=== PATIENT | male | born 1990 | race Two or more races ===

== ENCOUNTER 2019-09-09 00:51 | Emergency (ER) | payer OTHER ==
[~2019-09-09] VITALS: Ht 172.7 cm; Wt 56.8 kg
[2019-09-09] MEDS ORDERED: IV NORMAL SALINE 1000ML BAG 1,000 ML IV SCH (01:32)
--- NOTE | 2019-09-09 01:33 | PHYS DOC ---
Past Medical History Past Medical History: No Pertinent History Past Surgical History: No Surgical History Smoking Status: Never Smoker Alcohol Use: None General Adult EDM: Chief Complaint: ABDOMINAL PAIN HPI: HPI: Patient is a 29 year old male who presents with left upper quadrant pain that began an hour prior to arrival. Patient had some chicken tonight which may have caused it. Patient has pain with deep breath. No nausea vomiting. Pain is nonradiating described as a pain pain is moderate in nature worse with palpation and deep breath Review of Systems: Review of Systems: Constitutional: Denies fever or chills. [] Eyes: Denies change in visual acuity. [] HENT: Denies nasal congestion or sore throat. [] Respiratory: Denies cough or shortness of breath. [] Cardiovascular: Denies chest pain or edema. [] GI: Complains of abdominal pain but no nausea vomiting : Denies dysuria. [] Musculoskeletal: Denies back pain or joint pain. [] Integument: Denies rash. [] Neurologic: Denies headache, focal weakness or sensory changes. [] Endocrine: Denies polyuria or polydipsia. [] Lymphatic: Denies swollen glands. [] Psychiatric: Denies depression or anxiety. [] Heart Score: Risk Factors: Risk Factors: DM, Current or recent (<one month) smoker, HTN, HLP, family history of CAD, obesity. Risk Scores: Score 0 - 3: 2.5% MACE over next 6 weeks - Discharge Home Score 4 - 6: 20.3% MACE over next 6 weeks - Admit for Clinical Observation Score 7 - 10: 72.7% MACE over next 6 weeks - Early Invasive Strategies Physical Exam: PE: Constitutional: Well developed, well nourished, no acute distress, non-toxic appearance. [] HENT: Normocephalic, atraumatic, bilateral external ears normal, no trismus Eyes: PERRLA, EOMI, conjunctiva normal, no discharge. [] Neck: Normal range of motion, no tenderness, supple, no stridor. [] Cardiovascular:Heart rate regular rhythm, Lungs & Thorax: No respiratory distress Abdomen: soft, tenderness to palpate left upper quadrant, no masses, no pulsatile masses. [] No guarding or rebound Skin: Warm, dry, no erythema, no rash. [] Back: No tenderness, no CVA tenderness. [] Extremities: No tenderness, no cyanosis, no clubbing, ROM intact, no edema. [] Neurologic: Alert and oriented X 3, normal motor function, normal sensory function, no focal deficits noted. [] Psychologic: Affect normal, judgement normal, mood normal. [] Current Patient Data: Labs: Laboratory Tests Test 09/09/19 01:03 09/09/19 01:55 Urine Collection Type Unknown Urine Color Yellow Urine Clarity Clear Urine pH 6.0 Urine Specific [place] >=1.030 Urine Protein Negative mg/dL Urine Glucose (UA) Negative mg/dL Urine Ketones (Stick) Negative mg/dL Urine Blood Negative Urine Nitrite Negative Urine Bilirubin Negative Urine Urobilinogen Dipstick 1.0 mg/dL Urine Leukocyte Esterase Negative Urine RBC 0 /HPF Urine WBC Rare /HPF Urine Squamous Epithelial Cells Occ /LPF Urine Amorphous Sediment Present /HPF Urine Bacteria 0 /HPF Urine Mucus Mod /LPF White Blood Count 12.5 x10^3/uL Red Blood Count 4.81 x10^6/uL Hemoglobin 14.5 g/dL Hematocrit 42.5 % Mean Corpuscular Volume 89 fL Mean Corpuscular Hemoglobin 30 pg Mean Corpuscular Hemoglobin Concent 34 g/dL Red Cell Distribution Width 12.7 % Platelet Count 186 x10^3/uL Neutrophils (%) (Auto) 85 % Lymphocytes (%) (Auto) 7 % Monocytes (%) (Auto) 7 % Eosinophils (%) (Auto) 1 % Basophils (%) (Auto) 0 % Neutrophils # (Auto) 10.6 x10^3/uL Lymphocytes # (Auto) 0.9 x10^3/uL Monocytes # (Auto) 0.9 x10^3/uL Eosinophils # (Auto) 0.1 x10^3/uL Basophils # (Auto) 0.0 x10^3/uL Sodium Level 141 mmol/L Potassium Level 3.1 mmol/L Chloride Level 104 mmol/L Carbon Dioxide Level 29 mmol/L Anion Gap 8 Blood Urea Nitrogen 20 mg/dL Creatinine 1.1 mg/dL Estimated GFR (Cockcroft-Gault) 79.1 BUN/Creatinine Ratio 18 Glucose Level 115 mg/dL Calcium Level 8.5 mg/dL Total Bilirubin 1.5 mg/dL Aspartate Amino Transf (AST/SGOT) 25 U/L Alanine Aminotransferase (ALT/SGPT) 28 U/L Alkaline Phosphatase 79 U/L Total Protein 6.9 g/dL Albumin 3.7 g/dL Albumin/Globulin Ratio 1.2 Lipase 94 U/L Current Medications Medications (Trade) Dose Ordered Sig/Shagufta Route PRN Reason Start Time Stop Time Status Last Admin Dose Admin Sodium Chloride 1,000 ml @ 1,000 mls/hr Q1H IV 09/09/19 01:32 09/09/19 02:31 DC 09/09/19 02:19 Multi-Ingredient Mouthwash/Gargle (Gi Cocktail) 20 ml PRN QID PRN PO CHEST PAIN 09/09/19 01:45 09/09/19 02:18 Potassium Chloride (Klor-Con) 20 meq 1X ONCE PO 09/09/19 04:00 09/09/19 04:01 09/09/19 03:51 Laboratory Tests Test 09/09/19 01:03 09/09/19 01:55 Urine Collection Type Unknown Urine Color Yellow Urine Clarity Clear Urine pH 6.0 Urine Specific [place] >=1.030 Urine Protein Negative mg/dL Urine Glucose (UA) Negative mg/dL Urine Ketones (Stick) Negative mg/dL Urine Blood Negative Urine Nitrite Negative Urine Bilirubin Negative Urine Urobilinogen Dipstick 1.0 mg/dL Urine Leukocyte Esterase Negative Urine RBC 0 /HPF Urine WBC Rare /HPF Urine Squamous Epithelial Cells Occ /LPF Urine Amorphous Sediment Present /HPF Urine Bacteria 0 /HPF Urine Mucus Mod /LPF White Blood Count 12.5 x10^3/uL Red Blood Count 4.81 x10^6/uL Hemoglobin 14.5 g/dL Hematocrit 42.5 % Mean Corpuscular Volume 89 fL Mean Corpuscular Hemoglobin 30 pg Mean Corpuscular Hemoglobin Concent 34 g/dL Red Cell Distribution Width 12.7 % Platelet Count 186 x10^3/uL Neutrophils (%) (Auto) 85 % Lymphocytes (%) (Auto) 7 % Monocytes (%) (Auto) 7 % Eosinophils (%) (Auto) 1 % Basophils (%) (Auto) 0 % Neutrophils # (Auto) 10.6 x10^3/uL Lymphocytes # (Auto) 0.9 x10^3/uL Monocytes # (Auto) 0.9 x10^3/uL Eosinophils # (Auto) 0.1 x10^3/uL Basophils # (Auto) 0.0 x10^3/uL Sodium Level 141 mmol/L Potassium Level 3.1 mmol/L Chloride Level 104 mmol/L Carbon Dioxide Level 29 mmol/L Anion Gap 8 Blood Urea Nitrogen 20 mg/dL Creatinine 1.1 mg/dL Estimated GFR (Cockcroft-Gault) 79.1 BUN/Creatinine Ratio 18 Glucose Level 115 mg/dL Calcium Level 8.5 mg/dL Total Bilirubin 1.5 mg/dL Aspartate Amino Transf (AST/SGOT) 25 U/L Alanine Aminotransferase (ALT/SGPT) 28 U/L Alkaline Phosphatase 79 U/L Total Protein 6.9 g/dL Albumin 3.7 g/dL Albumin/Globulin Ratio 1.2 Lipase 94 U/L Current Medications Medications (Trade) Dose Ordered Sig/Shagufta Route PRN Reason Start Time Stop Time Status Last Admin Dose Admin Sodium Chloride 1,000 ml @ 1,000 mls/hr Q1H IV 09/09/19 01:32 09/09/19 02:31 DC 09/09/19 02:19 Multi-Ingredient Mouthwash/Gargle (Gi Cocktail) 20 ml PRN QID PRN PO CHEST PAIN 09/09/19 01:45 09/09/19 02:18 Laboratory Tests Test 09/09/19 01:03 09/09/19 01:55 Urine Collection Type Unknown Urine Color Yellow Urine Clarity Clear Urine pH 6.0 Urine Specific [place] >=1.030 Urine Protein Negative mg/dL Urine Glucose (UA) Negative mg/dL Urine Ketones (Stick) Negative mg/dL Urine Blood Negative Urine Nitrite Negative Urine Bilirubin Negative Urine Urobilinogen Dipstick 1.0 mg/dL Urine Leukocyte Esterase Negative Urine RBC 0 /HPF Urine WBC Rare /HPF Urine Squamous Epithelial Cells Occ /LPF Urine Amorphous Sediment Present /HPF Urine Bacteria 0 /HPF Urine Mucus Mod /LPF White Blood Count 12.5 x10^3/uL Red Blood Count 4.81 x10^6/uL Hemoglobin 14.5 g/dL Hematocrit 42.5 % Mean Corpuscular Volume 89 fL Mean Corpuscular Hemoglobin 30 pg Mean Corpuscular Hemoglobin Concent 34 g/dL Red Cell Distribution Width 12.7 % Platelet Count 186 x10^3/uL Neutrophils (%) (Auto) 85 % Lymphocytes (%) (Auto) 7 % Monocytes (%) (Auto) 7 % Eosinophils (%) (Auto) 1 % Basophils (%) (Auto) 0 % Neutrophils # (Auto) 10.6 x10^3/uL Lymphocytes # (Auto) 0.9 x10^3/uL Monocytes # (Auto) 0.9 x10^3/uL Eosinophils # (Auto) 0.1 x10^3/uL Basophils # (Auto) 0.0 x10^3/uL Sodium Level 141 mmol/L Potassium Level 3.1 mmol/L Chloride Level 104 mmol/L Carbon Dioxide Level 29 mmol/L Anion Gap 8 Blood Urea Nitrogen 20 mg/dL Creatinine 1.1 mg/dL Estimated GFR (Cockcroft-Gault) 79.1 BUN/Creatinine Ratio 18 Glucose Level 115 mg/dL Calcium Level 8.5 mg/dL Total Bilirubin 1.5 mg/dL Aspartate Amino Transf (AST/SGOT) 25 U/L Alanine Aminotransferase (ALT/SGPT) 28 U/L Alkaline Phosphatase 79 U/L Total Protein 6.9 g/dL Albumin 3.7 g/dL Albumin/Globulin Ratio 1.2 Lipase 94 U/L Current Medications Medications (Trade) Dose Ordered Sig/Shagufta Route PRN Reason Start Time Stop Time Status Last Admin Dose Admin Sodium Chloride 1,000 ml @ 1,000 mls/hr Q1H IV 09/09/19 01:32 09/09/19 02:31 DC 09/09/19 02:19 Multi-Ingredient Mouthwash/Gargle (Gi Cocktail) 20 ml PRN QID PRN PO CHEST PAIN 09/09/19 01:45 09/09/19 02:18 Vital Signs: Vital Signs Date Time Temp Pulse Resp B/P (MAP) Pulse Ox O2 Delivery O2 Flow Rate FiO2 09/09/19 03:00 65 106/55 (72) 98 Room Air 09/09/19 02:30 79 113/56 (75) 98 Room Air 09/09/19 02:00 60 104/56 (72) 97 Room Air 09/09/19 01:30 60 110/56 (74) 98 Room Air 09/09/19 01:21 98.1 53 19 115/55 (75) 98 Room Air 98.1 Vital Signs Date Time Temp Pulse Resp B/P (MAP) Pulse Ox O2 Delivery O2 Flow Rate FiO2 09/09/19 01:21 98.1 53 19 115/55 (75) 98 Room Air 98.1 EKG: EKG: [] Radiology/Procedures: Radiology/Procedures: [][facility] [address] [place] [address] IMAGING REPORT Signed PATIENT: GUERRERO LAWRENCE ACCOUNT: [id number] : 1990 LOCATION: ER AGE: 29 SEX: M EXAM STATUS: REG ER ORD. PHYSICIAN: AGNIESZKA DANIEL MD REASON: LUQ PAIN PROCEDURE: ACUTE ABDOMEN SERIES PROCEDURE: ACUTE ABDOMEN SERIES STUDY DATE: 09/09/2019 CLINICAL INDICATION / HISTORY: Reason: LUQ PAIN / Spl. Instructions: / History: . TECHNIQUE: Upright PA chest, supine and upright films of the abdomen were obtained. COMPARISON: None FINDINGS: AP view the chest reveals the lungs to be clear. Cardiac and mediastinal silhouette are unremarkable. No free air is identified below the diaphragms. Supine and upright views of the abdomen reveal no dilated loops of bowel or air-fluid levels. No organomegaly is present. No destructive osseous lesions. IMPRESSION: No radiographic evidence for bowel obstruction. Electronically signed by: Miriam Dozier MD (09/09/2019 2:30 AM) [facility] [place] DICTATED and SIGNED BY: MIRIAM DOZIER MD DATE: 09/09/190 Course & Med Decision Making: Course & Med Decision Making Pertinent Labs and Imaging studies reviewed. (See chart for details) [] Reassessment at 328 patient feels better pain is down to a 2. Abdomen is soft and nontender. Work-up is reassuring. Most likely patient has gastritis we will send him home on a PPI and follow-up as needed Deng Disclaimer: Deng Disclaimer: This electronic medical record was generated, in whole or in part, using a voice recognition dictation system. Departure Departure Impression: Primary Impression: Left upper quadrant abdominal pain Additional Impression: Gastritis Disposition: 01 HOME, SELF-CARE Condition: STABLE Referrals: AGNIESZKA MCCORD MD 2-3 days Patient Instructions: Gastritis, Adult Additional Instructions: EMERGENCY DEPARTMENT GENERAL DISCHARGE INSTRUCTIONS Thank you for coming to [facility] Emergency Department (ED) today and trusting us with you care. We trust that you had a positivie experience in our Emergency Department. If you wish to speak to the department management, you may call the sirector at [phone]. YOUR FOLLOW UP INSTRUCTIONS ARE FOLLOWS: 1. Do you have a private Doctor? If you do not have a private doctir, please ask for a resource list of physicians or clinics that may be able to assist you with follow up care. 2. The Emergency Physicain has interpreted your x-rays. The X-Ray specialist will also review them. If there is a change in the findingd, you will be notified in 48 hours when at all possible. 3. A lab test or culture has been done, your results will be reviewed and you will be notified if you need a change in treatment. ADDITIONAL INSTRUCTIONS AND INFORMATION: 1. Your care today has been supervised by a physician who is specially trained in emergency care. Many problems require more than one evaluation for a complete diagnosis and treatment. We recommend that you schedule your follow up appointment as recommended to ensure complete treatment of you illness or injury. If you are unable to obtain follow up care and continue to have a problem, or if your consition worsens, we recommend that you return to the ED. 2. We are not able to safelymdetermine your condition over the phone nor are we able to give sound medical advice over the phone. For these safety reasons, if you call for medical advice we will ask you to come to the ED for further evaluation. 3. If you have any questions regarding these discharge instructions please call the ED at [phone]. SAFETY INFORMATION: In the interest of safety, wellness, and injury prevention; we encourage you to wear your sealbelt, if you smoke; quite smoking, and we encourage family to use a protective helmet for bicycling and other sporting events that present an increased risk for head injusry. IF YOUR SYMPTOMS WORSEN OR NEW SYMPTOMS DEVELOP, OR YOU HAVE CONCERNS ABOUT YOUR CONDITION; OR IF YOUR CONDITION WORSENS WHILE YOU ARE WAITING FOR YOUR FOLLOW UP APPOINTMENT; EITHER CONTACT YOUR PRIMARY CARE DOCTOR, THE PHYSICIAN WHOSE NAME AND NUMBER YOU WERE GIVEN, OR RETURN TO THE ED IMMEDIATELY. Scripts Esomeprazole Magnesium (NEXIUM CAPSULE) 40 Mg Capsule.dr 1 CAP PO DAILY, #30 CAP 5 Refills Prov: AGNIESZKA DANIEL MD 09/09/19 Justicifation of Admission Dx: Justifications for Admission: Justification of Admission Dx: N/A FREDY,AGNIESZKA MD Sep 09, 2019 01:33
[2019-09-09 01:40] LABS: BILIRUBIN,URINE NEGATIVE (NEG); CLARITY,URINE CLEAR; COLOR,URINE YELLOW; NITRITE,URINE NEGATIVE (NEG); PROTEIN,URINE NEGATIVE (NEG-TRACE)
[2019-09-09 01:44] LABS: SQUAMOUS EPITHELIAL CELL,UR OCC /LPF
[2019-09-09 01:45] LABS: AMORPHOUS SEDIMENT,UR PRESENT /HPF; BACTERIA,URINE 0 /HPF (0-FEW); RBC,URINE 0 /HPF (0-2); WBC,URINE RARE /HPF (0-4)
[2019-09-09] MEDS ORDERED: LIDO:MAALOX 1:1 20 ML SINGLE DOSE. PO PRN (01:45)
[2019-09-09 02:02] LABS: BASO % 0 % (0-3); EOS # 0.1 x10^3/uL (0.0-0.7); EOS % 1 % (0-3); HEMATOCRIT 42.5 % (39.0-53.0); HEMOGLOBIN 14.5 g/dL (13.0-17.5); LYMPH # 0.9 x10^3/uL (1.0-4.8); LYMPH % 7 % (24-48); MEAN CORPUSCULAR HEMOGLOBIN 30 pg (25-35); MEAN CORPUSCULAR HGB CONC 34 g/dL (31-37); MEAN CORPUSCULAR VOLUME 89 fL (79-100); MONO # 0.9 x10^3/uL (0.0-1.1); MONO % 7 % (0-9); NEUT # 10.6 x10^3/uL (1.8-7.7); NEUT % 85 % (31-73); PLATELET COUNT 186 x10^3/uL (140-400); RED BLOOD COUNT 4.81 x10^6/uL (4.30-5.70); RED CELL DISTRIBUTION WIDTH 12.7 % (11.5-14.5); WHITE BLOOD COUNT 12.5 x10^3/uL (4.0-11.0)
[2019-09-09 02:14] LABS: CALCIUM 8.5 mg/dL (8.5-10.1); CREATININE 1.1 mg/dL (0.7-1.3); GFR 79.1; POTASSIUM 3.1 mmol/L (3.5-5.1)
[2019-09-09 02:16] LABS: ALBUMIN 3.7 g/dL (3.4-5.0); ALBUMIN/GLOBULIN RATIO 1.2 (1.0-1.7); TOTAL BILIRUBIN 1.5 mg/dL (0.2-1.0); TOTAL PROTEIN 6.9 g/dL (6.4-8.2)
--- NOTE | 2019-09-09 02:33 | RAD ---
PROCEDURE: ACUTE ABDOMEN SERIES STUDY DATE: 09/09/2019 CLINICAL INDICATION / HISTORY: Reason: LUQ PAIN / Spl. Instructions: / History: . TECHNIQUE: Upright PA chest, supine and upright films of the abdomen were obtained. COMPARISON: None FINDINGS: AP view the chest reveals the lungs to be clear. Cardiac and mediastinal silhouette are unremarkable. No free air is identified below the diaphragms. Supine and upright views of the abdomen reveal no dilated loops of bowel or air-fluid levels. No organomegaly is present. No destructive osseous lesions. IMPRESSION: No radiographic evidence for bowel obstruction. Electronically signed by: Alessandra Dozier MD (09/09/2019 2:30 AM) [facility] [place]
[2019-09-09] MEDS ORDERED: ESOM40CA PO (03:27)
[2019-09-09 03:55] VITALS: BP 104/56
[2019-09-09] MEDS ORDERED: POTASSIUM CHLORIDE 20 MEQ TABLET.ER. PO ONE (04:00)
== END 2019-09-09 03:55 | disposition home or self-care (01) ==
LOC: ER 00:51
DX: K29.70 Gastritis, unspecified, without bleeding (principal); R10.32 Left lower quadrant pain
CPT/HCPCS: 36415; 74022; 80053; 81001; 83690; 85025; 99285; J7030